=== PATIENT | male | born 1980 | race Two or more races ===

== ENCOUNTER 2022-11-17 04:14 | Emergency (ER) | payer MEDICAID ==
[~2022-11-17] VITALS: Ht 167.6 cm; Wt 108.9 kg
--- NOTE | 2022-11-17 04:32 | NUR ---
BIBSELF C/O COUGHING UP BLOOD CLOT AFTER WAKING UP THIS MORNING, SORE THROAT. PATIENT IS A/O X 4, RR EVEN AND UNLABORED NO SOB NOTES. VSS. NO ACUTE DISTRESS NOTED.
--- NOTE | 2022-11-17 04:33 | NUR ---
18G IV PLACED, BLOOD WORK COLLECTED
[2022-11-17 04:49] LABS: BASOPHILS % (AUTO) 0.1 % (0.0-2.0); EOSINOPHILS % (AUTO) 2.1 % (0.0-6.0); HEMATOCRIT 43 % (39-51); HEMOGLOBIN 13.9 g/dL (13.5-17.5); LYMPHOCYTES # (AUTO) 4.1 K/uL (0.8-4.8); LYMPHOCYTES % (AUTO) 45.7 % (20.0-44.0); MEAN CORPUSCULAR HGB CONC 33 g/dl (31.0-36.0); MEAN CORPUSCULAR VOLUME 86 fL (80-96); MONOCYTES # (AUTO) 0.8 K/uL (0.1-1.30); MONOCYTES % (AUTO) 8.7 % (2.0-12.0); NEUTROPHILS # (AUTO) 3.9 K/uL (1.8-8.9); NEUTROPHILS % (AUTO) 43.4 % (43.0-81.0); PLATELET COUNT (AUTO) 256 K/uL (150-450); RED BLOOD CELL COUNT(AUTO) 4.96 MIL/uL (4.5-6.0)
[2022-11-17 05:05] LABS: CALCIUM, SERUM 8.1 mg/dL (8.5-10.1); CARBON DIOXIDE 32 mmol/L (21-32); CHLORIDE 104 mmol/L (98-107); CREATININE 0.9 mg/dL (0.6-1.3); GLUCOSE 125 mg/dL (74-106); SODIUM SERUM 139 mmol/L (136-145); UREA NITROGEN, BLOOD 16 mg/dL (7-18)
--- NOTE | 2022-11-17 05:56 | NUR ---
PT TAKEN TO CT
--- NOTE | 2022-11-17 06:14 | NUR ---
PT RETURNED TO ER BED [address]
--- NOTE | 2022-11-17 08:00 | NUR ---
IV removed. Catheter intact and site benign. Pressure and 4x4 applied to site. No bleeding noted.
--- NOTE | 2022-11-17 08:16 | NUR ---
Patient discharged to home in stable condition. Written and verbal after care instructions given. Patient verbalizes understanding of instruction.
[2022-11-17 08:18] VITALS: BP 137/74
== END 2022-11-17 08:19 | disposition home or self-care (01) ==
LOC: ER 04:18
DX: R05.9 Cough, unspecified (principal)
CPT/HCPCS: 36415; 80048-TC; 84484-TC; 85025-TC